=== PATIENT | male | born 1960 | race Caucasian/White ===

== ENCOUNTER 2016-06-29 03:46 | Inpatient (IN) ==
--- NOTE | 2016-06-24 13:04 | EKG Report ---
Test Performed on : 06/24/2016 1:01:53 PM Test Reason : PAT Blood Pressure : / mmHG Vent. Rate : 069 BPM Atrial Rate : 069 BPM P-R Int : 182 ms QRS Dur : 092 ms QT Int : 416 ms P-R-T Axes : 060 059 070 degrees QTc Int : 445 ms Normal sinus rhythm. Normal ECG No previous ECGs available Confirmed by Jonathon MARTINEZ, Colton Gu ([id number]) on 06/25/2016 7:03:25 AM
[2016-06-24 13:12] LABS: MANUAL DIFF NEEDED? NO; URINE MICRO REVIEW NEEDED? NO; URINE SOURCE VOIDED
[2016-06-24 13:19] LABS: BASO% 0.5 % (0.0-0.8); EOS# 0.26 X1000 (0.0-0.7); EOS% 2.8 % (0.0-10.0); HEMATOCRIT 40.8 % (42.0-52.0); HEMOGLOBIN 13.6 g/dL (14.0-18.0); IMM GRAN# 0.02 X1000 (0.0-0.04); IMM GRAN% 0.2 % (0.0-0.5); LYMPH# 2.12 X1000 (1.2-3.4); LYMPH% 22.7 % (20.5-51.1); MCHC 33.3 g/dL (33-37); MCV 89.9 FL (81-99); MONO# 0.82 X1000 (0.11-0.59); MONO% 8.8 % (1.7-9.3); MPV 8.8 FL (7.4-10.4); PLT 307 X1000 (130-400); RBC 4.54 XMIL (4.7-6.1)
[2016-06-24 13:22] LABS: BILIRUBIN URINE NEGATIVE (NEGATIVE); BLOOD URINE NEGATIVE (NEGATIVE); COLOR YELLOW; GLUCOSE URINE 150 mg/dL (NEGATIVE); LEUKOCYTES URINE NEGATIVE (NEGATIVE); NITRITE URINE NEGATIVE (NEGATIVE); PH URINE 5.5; PROTEIN URINE NEGATIVE (NEGATIVE); TURBIDITY URINE CLEAR (CLEAR); UROBILINOGEN URINE NORMAL (NORMAL)
[2016-06-24 13:35] LABS: INR 1.01; PROTIME 10.6 Seconds (9.2-11.7)
[2016-06-24 13:37] LABS: SP GRAVITY URINE 1.022
[2016-06-24 13:38] LABS: UR EPITHELIAL CELLS <10 /HPF (<10); URINE BACTERIA NEGATIVE /HPF; URINE RBC <10 /HPF (<10); URINE WBC <10 /HPF (<10)
[2016-06-24 13:56] LABS: AGAP 11; BUN 16 mg/dL (8-22); CHLORIDE 98 mmol/L (98-107); COSMO 274; POTASSIUM 3.7 mmol/L (3.5-5.1); SODIUM 137 mmol/L (136-145); TCO2 28 mmol/L (25-35)
[2016-06-29] MEDS ORDERED: REGLAN ONE (07:31)
[2016-06-29] MEDS ORDERED: COLACE ONE (07:31)
[2016-06-29] MEDS ORDERED: PEPCID ONE (07:31)
[2016-06-29] MEDS ORDERED: LYRICA ONE (07:32)
[2016-06-29] MEDS ORDERED: CELEBREX ONE (07:32)
[2016-06-29] MEDS ORDERED: KEFZOL 2 GM/D5W 2 GM/50 ML IVPB ONE (07:32)
[2016-06-29] MEDS ORDERED: LR 1,000 ML ONE ×2 (07:32→12:34)
[2016-06-29] MEDS ORDERED: DIPRIVAN 1% 500 MG/50 ML BOTTLE ONE (08:14)
[2016-06-29] MEDS ORDERED: MARCAINE 0.25% PF/EPI 1:200,000 ONE (08:53)
[2016-06-29] MEDS ORDERED: TORADOL ONE (08:53)
[2016-06-29] MEDS ORDERED: SODIUM CHLORIDE 0.9% ONE (08:53)
[2016-06-29] MEDS ORDERED: CYKLOKAPRON 1,000 MG/NS 1,000 MG/100 ML IVPB ONE ×2 (08:53→08:54)
[2016-06-29] MEDS ORDERED: EXPAREL 1.3% ONE (08:53)
[2016-06-29] MEDS ORDERED: VANCOMYCIN ONE (08:53)
[2016-06-29] MEDS ORDERED: NEOSPORIN G.U. IRRIGANT ONE (08:54)
[2016-06-29 10:23] LABS: URINE MICRO REVIEW NEEDED? NO; URINE SOURCE CATH
[2016-06-29 10:35] LABS: BILIRUBIN URINE NEGATIVE (NEGATIVE); BLOOD URINE NEGATIVE (NEGATIVE); COLOR YELLOW; GLUCOSE URINE NEGATIVE (NEGATIVE); LEUKOCYTES URINE NEGATIVE (NEGATIVE); NITRITE URINE NEGATIVE (NEGATIVE); PH URINE 5.5; PROTEIN URINE NEGATIVE (NEGATIVE); SP GRAVITY URINE 1.024; TURBIDITY URINE CLEAR (CLEAR); UROBILINOGEN URINE NORMAL (NORMAL)
[2016-06-29 10:36] LABS: UR EPITHELIAL CELLS <10 /HPF (<10); URINE BACTERIA NEGATIVE /HPF; URINE RBC <10 /HPF (<10); URINE WBC <10 /HPF (<10)
[2016-06-29] MEDS ORDERED: VERSED ONE (11:52)
[2016-06-29] MEDS ORDERED: FENTANYL ONE (11:54)
[2016-06-29] MEDS ORDERED: NS 1,000 ML ONE (12:22)
[2016-06-29] MEDS ORDERED: ZOFRAN ONE (12:34)
[2016-06-29] MEDS ORDERED: XYLOCAINE-MPF 2% ONE (12:34)
[2016-06-29] MEDS ORDERED: OFIRMEV 1000 MG/ISOTONIC SOLN 1,000 MG/100 ML BOTTLE ONE (12:34)
[2016-06-29] MEDS ORDERED: DECADRON ONE (12:34)
[2016-06-29] MEDS ORDERED: AMBIEN PO PRN (12:45)
[2016-06-29] MEDS ORDERED: ZOFRAN IV PRN (12:45)
[2016-06-29] MEDS ORDERED: MILK OF MAGNESIA PO PRN (12:45)
[2016-06-29] MEDS ORDERED: MORPHINE IV PRN (12:45)
[2016-06-29] MEDS: ULTRAM PO SCH ×2 (15:24→21:50)
[2016-06-29] MEDS: TYLENOL PO SCH ×2 (15:24→21:50)
[2016-06-29] MEDS: NS 1,000 ML IV SCH (15:25)
[2016-06-29] MEDS: COLACE PO SCH ×2 (15:25→21:50)
--- NOTE | 2016-06-29 16:38 | OPERATIVE NOTE ---
PROCEDURE DATE: 06/29/2016 PREOPERATIVE DIAGNOSIS: Left knee degenerative joint disease. POSTOPERATIVE DIAGNOSIS: Left knee degenerative joint disease. PROCEDURE PERFORMED: Left total knee arthroplasty using a [employer] orthopedic size 10 femoral component, size 11 tibial base plate, a 10 mm insert and a 38 mm patellar component. ANESTHESIA: Spinal. SURGEON: Jaleel Khoury MD AUTO PARTS CLERK: ALEN Mendosa SECOND AUTO PARTS CLERK: SHLOMO Reyes TOURNIQUET TIME: Approximately an hour and a half. COMPLICATIONS: None. DRAINS: Hemovac x1. DESCRIPTION OF PROCEDURE: The patient was brought to the operative suite and placed in supine position. After successful administration of spinal anesthesia, a well-padded tourniquet was placed on the left proximal thigh. The left lower extremity was prepped and draped in the usual sterile fashion. Leg was exsanguinated. Tourniquet insufflated to 350 torr. A longitudinal made beginning at the superior pole of the patella and extended distally to the tibia tuberosity. It was dissected sharply through the skin. Full-thickness skin flaps were elevated medially and laterally. A medial arthrotomy was made with a vastus snip. The medial capsule was elevated off the medial tibial plateau. The prepatellar fat pad, ACL, PCL, medial meniscus, lateral meniscus were excised. A drill was entered in the center of the distal femur. An intramedullary guide was placed. Distal cutting block was pinned into place. The distal cut was made with oscillating saw. The femur was sized to size 10, a size 10 cutting block was pinned in place. The anterior cuts, chamfer cuts, and posterior condylar cuts were made with the oscillating saw. Marginal osteophytes removed with rongeur. A box cutting block was pinned into place. A box cut was made with a box osteotome and oscillating saw. The posterior condyle osteophytes were removed with the curved osteotome and rongeur. Attention was then directed to the tibia. A drill was entered in the center of the tibia. An intramedullary guide was placed. Alignment was checked with drop fani, referencing off the anterior cortex of the tibia and the second ray of the foot, and taking 3 mm off the low side of the tibia which, in this case, was medially the tibial cutting block was pinned into place. The articular surface of the tibial plateau was removed with an oscillating saw. The flexion- extension gaps were checked and balanced at 10 mm. The tibia sized to size 11. A size 11 guide was used for the fin punch. The tibial trial, femoral trial, and the 10 mm size 11 articular insert were placed, taken through range of motion, found to have excellent alignment, balancing, and range of motion. Attention was then directed to the patella and 9 mm of the articular surface of the patella removed with the oscillating saw. The patella sized to size 38. A size 38 guide was used to drill peg holes. The lateral facet was chamfered 30 to 45 degrees. Patella trial was placed, taken through range of motion, found to have excellent patella tracking. All trials were then removed. The knee was copiously irrigated and dried, being certain all bone debris was removed. The tibial component, femoral component, patellar component were cemented into place, excess cement being removed with a Roby. Once the cement had hardened, excess cement was again removed with an osteotome. The knee was again copiously irrigated and dried, being certain all bone and cement debris were removed. The trial articular insert was removed. The knee was copiously infiltrated with Exparel, including posterior capsule, anterior capsule, medial and lateral collateral ligaments, the anterior musculature, and then the definitive articular insert was locked into place. The knee was again taken through range of motion. Again, found to have excellent alignment, balancing, range of motion, patellar tracking. A drain was placed exiting superior lateral and buried in the lateral gutter. The medial arthrotomy was repaired with a Stratafix suture size 0 and the skin edge approximated with 2-0 Vicryl and the skin was closed with Prineo. A sterile dressing was placed around the drain and then an Srinath wrap and a cooling blanket. The patient tolerated the procedure well without complication. At the end of the procedure, all counts correct. The patient was transferred to the recovery room in stable condition. cc: Jaleel Khoury MD
[2016-06-29] MEDS: KEFZOL 2 GM/D5W 2 GM/50 ML IVPB IV SCH (18:18)
[2016-06-29] MEDS: OXY IR PO PRN (18:21)
[2016-06-29] MEDS: PERIDEX MT SCH (21:49)
[2016-06-29] MEDS: CELEBREX PO SCH (21:49)
[2016-06-29] MEDS: LYRICA PO SCH (21:50)
[2016-06-30] MEDS: KEFZOL 2 GM/D5W 2 GM/50 ML IVPB IV SCH (01:32)
[2016-06-30] MEDS: OXY IR PO PRN (01:32)
[2016-06-30] MEDS: NS 1,000 ML IV SCH (01:33)
[2016-06-30] MEDS: TYLENOL PO SCH ×2 (03:32→09:20)
[2016-06-30] MEDS: ULTRAM PO SCH ×2 (03:32→09:21)
[2016-06-30 05:48] LABS: AGAP 10; BUN 18 mg/dL (8-22); CALCIUM 8.6 mg/dL (8.8-10.2); CHLORIDE 103 mmol/L (98-107); COSMO 279; POTASSIUM 5.2 mmol/L (3.5-5.1); SODIUM 138 mmol/L (136-145); TCO2 25 mmol/L (25-35)
[2016-06-30] MEDS ORDERED: XARELTO PO SCH (06:00)
[2016-06-30 06:12] LABS: HEMATOCRIT 34.2 % (42.0-52.0); HEMOGLOBIN 11.4 g/dL (14.0-18.0)
[2016-06-30] MEDS ORDERED: PEPCID PO SCH (09:00)
[2016-06-30] MEDS ORDERED: DIOVAN PO SCH (09:00)
[2016-06-30] MEDS ORDERED: DECADRON IV ONE (09:00)
[2016-06-30] MEDS: COLACE PO SCH (09:20)
[2016-06-30] MEDS: CELEBREX PO SCH (09:20)
[2016-06-30] MEDS: LYRICA PO SCH (09:21)
[2016-06-30] MEDS: PERIDEX MT SCH (09:23)
[2016-06-30 11:16] VITALS: BP 111/61
--- NOTE | 2016-06-30 15:46 | DISCHARGE SUMMARY ---
ADMISSION DATE: 06/29/2016 DISCHARGE DATE: 06/30/2016 DISCHARGE DIAGNOSIS: Left degenerative joint disease, status post left total knee arthroplasty. DISCHARGE MEDICATIONS: See discharge medication list. DISPOSITION: The patient is discharged home with home health. DISCHARGE INSTRUCTIONS: Instructions for total knee arthroplasty protocol. Instructed to return to see Dr. Khoury next . HOSPITAL COURSE: On the day of admission, patient underwent a left total knee arthroplasty. His postoperative course was unremarkable. At discharge, he is afebrile, tolerating a regular diet, ambulating well, physical therapy. Yesterday, he walked 90 feet. His hemoglobin is 11.4 and his hematocrit is 34.2, and he had 80 mL of output from his drain. His wound is clean, dry, and intact, without sign of infection. He is discharged home in stable condition with instructions to follow up as described above. Dictated by ALEN Marrero for Jaleel Khoury MD cc: ALEN Marrero MD
== END 2016-06-30 14:12 | disposition home health service (06) ==
LOC: SURHOLD 03:46 → 4N 10:36
PROVIDERS: ADMIT Orthopaedic Surgery; ATTEND Orthopaedic Surgery